=== PATIENT | female | born 1980 | race Caucasian/White ===

== ENCOUNTER 2017-09-01 08:39 | Outpatient (CLI) | payer BC ==
[~2017-09-01 08:39] MED LIST: ISOVUE-370 76%-LOCM 1 ML ONE
== END 2017-09-01 08:40 | disposition home or self-care (01) ==
LOC: BICCT 08:39
PROVIDERS: ATTEND Internal Medicine Gastroenterology
DX: R10.13 Epigastric pain (principal); R19.4 Change in bowel habit; Z87.19 Personal history of other diseases of the digestive system; Z90.49 Acquired absence of other specified parts of digestive tract
CPT/HCPCS: 74177

== ENCOUNTER 2018-10-22 07:44 | Outpatient (CLI) | payer BC ==
--- NOTE | 2018-10-22 09:35 | ULT ---
PELVIC ULTRASOUND INCLUDING TRANSABDOMINAL AND TRANSVAGINAL AND VASCULAR DUPLEX WITH COLOR AND SPECTR AL DOPPLER IMAGING: HISTORY: Dysmenorrhea. COMPARISON: 08/22/2016. FINDINGS: Uterus measures 7.7 x 4.9 x 3.8 cm. Endometrium 0.6 cm. Right ovary measures 3.0 x 2.2 x 2.6 cm. T here is a 0.9 x 1.3 cm cyst in the right ovary. The left ovary measures 2.3 x 2.4 x 2.0 cm containing a 0.5 x 0.6 cm cyst. No abscess or abnormal fl uid collection. Vascular duplex is documented to both ovaries. No evidence for ovarian torsion. IMPRESSION: Small bilateral ovarian cyst/follicles. No evidence for other significant acute process. Compared t o the prior 08/22/2016 study, there was a 2 cm cyst noted on the right ovary at that time. POS: [facility]
== END 2018-10-22 07:45 | disposition home or self-care (01) ==
LOC: BICULT 07:44
PROVIDERS: ATTEND Obstetrics & Gynecology Gynecology
DX: N94.6 Dysmenorrhea, unspecified (principal); N83.202 Unspecified ovarian cyst, left side; N83.201 Unspecified ovarian cyst, right side
CPT/HCPCS: 76856

== ENCOUNTER 2019-01-02 17:40 | Emergency (ER) | payer BC ==
--- NOTE | 2019-01-02 18:54 | RAD ---
2 views chest: 01/02/2019 COMPARISON: None HISTORY: Fever, recent abdominal surgery FINDINGS: Small volume free intraperitoneal air noted in the right upper quadrant, consistent with th e provided history of recent abdominal surgery. Clips in the right upper quadrant suggest prior cholecystectomy. No pneumothorax or pleural fluid. No focal consolidation or alveolar edema. IMPRESSION: Small volume free intraperitoneal air within the right upper quadrant. No radiographic ev idence of acute cardiopulmonary disease.
[2019-01-02 19:02] LABS: BHCG - Serum Negative (NEGATIVE); Pregs Control Background? CLEAR/WHITE (CLR/WHITE); Pregs Control Bar Appear? YES (CONTROL BAR)
[2019-01-02 19:09] LABS: #Eosinphils 0.1 thou/uL (0.0-0.7); #Monocytes 0.5 thou/uL (0.11-0.59); #Neutrophils 2.4 thou/uL (1.40-6.50); %Basophils 0.8 % (0.0-1.0); %Eosinophils 1.6 % (0.0-10.0); %Lymphocytes 25.2 % (21.0-51.0); %Neutrophils 59.4 % (42.0-75.0); Hemoglobin 11.5 g/dL (12.0-16.0); Mean Corpuscular HGB CONC 34.8 g/dL (32.0-36.0); Mean Corpuscular Hemoglobin 29.8 pg (27.0-31.0); Mean Corpuscular Volume 85.5 fL (78.0-98.0); Mean Platelet Volume 6.6 fL (7.4-10.4); Platelet Count 233 thou/uL (130-400); RBC Distribution Width 10.6 % (11.5-14.5); Red Blood Cell (RBC) Count 3.86 mill/uL (4.20-5.40); White Blood Cell (WBC) Count 4.1 thou/uL (4.8-10.8)
[2019-01-02 19:17] LABS: Anion Gap 12 mmol/L (10-20); BUN (Urea Nitrogen) 10 mg/dL (7.0-18.7); Calc. Creatinine Clearance 0 mL/min (70-130); Carbon Dioxide 26 mmol/L (22-29); Chloride 104 mmol/L (98-107); Estimated GFR-MDRD 80; Potassium 3.8 mmol/L (3.5-5.1); Sodium 138 mmol/L (136-145)
[2019-01-02 19:18] LABS: ALT (SGPT) 21 U/L (8-55); AST (SGOT) 22 U/L (5-34); Albumin 4.2 g/dL (3.5-5.0); Alkaline Phosphatase 61 U/L (40-150); Calcium 9.2 mg/dL (7.8-10.44); Globulin 2.8 g/dL (2.4-3.5); Glucose 114 mg/dL (70-105)
[2019-01-02 19:29] LABS: Bacteria/HPF None Seen HPF (None Seen); Bilirubin Negative (Negative); Blood, Urine Trace (Negative); Clarity Clear (Clear); Glucose, Urine (Dipstick) Normal (Negative); Leukocyte Negative Leu/uL (Negative); Nitrite Negative (Negative); Protein, Urine (Dipstick) Negative (Neg-Trace); RBC/HPF 0-3 HPF (0-3); Squamous Epithelial None Seen HPF (0-3); Urobilinogen Normal mg/dL (Less than 2); WBC/HPF 0-3 HPF (0-3)
== END 2019-01-02 19:56 | disposition home or self-care (01) ==
LOC: ERS 17:40
DX: R50.82 Postprocedural fever (principal)
CPT/HCPCS: 36415; 71046; 80053; 81003; 81015; 83605; 84703; 85025; 96360

== ENCOUNTER 2021-03-14 09:53 | Outpatient (CLI) | payer BC | END 2021-03-14 09:54 | disposition home or self-care (01) | LOC: BICMAMMO 09:53 | PROVIDERS: ATTEND Family Medicine | DX: N63.22 Unspecified lump in the left breast, upper inner quadrant (principal); Z80.3 Family history of malignant neoplasm of breast | CPT/HCPCS: 77066; G0279 ==

== ENCOUNTER 2023-02-14 08:28 | Outpatient (CLI) | payer BC | END 2023-02-14 08:29 | disposition home or self-care (01) | LOC: BICRAD 08:28 | PROVIDERS: ATTEND Family Medicine | DX: M25.552 Pain in left hip (principal); M16.12 Unilateral primary osteoarthritis, left hip ==